=== PATIENT | female | born 1970 | race Caucasian/White ===

== ENCOUNTER → 2018-06-10 | Outpatient (CLI) | payer OTHER ==
[2018-06-10 11:26] LABS: Anisocytosis Moderate; Basophils # (A) 0.1 k/uL (0-0.2); Basophils % (A) 1 %; Eosinophils # (A) 0.1 k/uL (0-0.7); Eosinophils % (A) 2 %; HCT 31.9 % (34.0-46.0); HGB 9.4 gm/dL (11.4-16.0); Hypochromasia Marked; Lymphocytes # (A) 1.2 k/uL (1.0-4.8); Lymphocytes % (A) 21 %; MCH 23.4 pg (25.0-35.0); MCHC 29.6 g/dL (31.0-37.0); MCV 79.2 fL (80.0-100.0); Mean Platelet Volume 6.7; Microcytosis Slight; Monocytes # (A) 0.4 k/uL (0-1.0); Monocytes % (A) 8 %; Neutrophils # (A) 3.7 k/uL (1.3-7.7); Neutrophils % (A) 67 %; Platelet Count 292 k/uL (150-450); Poikilocytosis Moderate; RBC 4.03 m/uL (3.80-5.40); WBC 5.6 k/uL (3.8-10.6)
== END | disposition home or self-care (01) ==
LOC: LABPAT 10:22
PROVIDERS: ATTEND Obstetrics & Gynecology Obstetrics
DX: Z01.812 Encounter for preprocedural laboratory examination (principal); D64.9 Anemia, unspecified; N92.0 Excessive and frequent menstruation with regular cycle
CPT/HCPCS: 36415; 85025

== ENCOUNTER 2018-06-16 06:14 | Day surgery (SDC) | payer OTHER ==
[2018-06-09 12:05] VITALS: BMI 31.3
--- NOTE | 2018-06-15 13:57 | HP ---
HISTORY AND PHYSICAL HISTORY OF PRESENT ILLNESS: This is a very pleasant 48-year-old female, 3, para 3, presents with complaints of irregular heavy menses. She states her menstrual cycles are irregular in nature with a heavy flow with clots. She wishes endometrial ablation at this time. PAST MEDICAL HISTORY: Asthma, heart murmur, thyroid disease. PAST SURGICAL HISTORY: Laparoscopy that was done in 1990. MEDICATIONS: 1. Levothyroxine 50 mcg. 2. Wellbutrin 300 mg. 3. Xanax 0.5 as needed. 4. Zoloft 50 mg once daily. ALLERGIES: LATEX, SULFA. FAMILY MEDICAL HISTORY: Noncontributory to this procedure. REPRODUCTIVE HISTORY: She is 3, para 3 with 3 prior vaginal deliveries. Of note, she did have preeclampsia with 2 of her last 2 deliveries. TELEMETRY TECHNICIAN HISTORY: She states her menstrual cycles are irregular and heavy in nature and she is using a vasectomy for sterilization. SOCIAL HISTORY: She is a nonsmoker with very rare alcohol use. REVIEW OF SYSTEMS: She notes a regular menses with heavy flow. She denies urinary symptoms such as dysuria or urgency. PHYSICAL EXAM: GENERAL: She is a well-nourished, well-developed, alert female in no acute distress. HEART: Regular rate and rhythm. LUNGS: Clear to auscultation bilaterally. TELEMETRY TECHNICIAN EXAM: Her uterus is normal size and mobile with no adnexal masses being palpated. ASSESSMENT: 1. Menorrhagia for which patient desires endometrial ablation after counseling is completed. 2. Anemia. PLAN: NovaSure endometrial ablation with hysteroscopy, dilation and curettage discussed. The procedure is reviewed. All questions are answered and patient states understanding. Informed consent is obtained. We will proceed with procedure as stated above. MMODL / IJN: [id number] /
[~2018-06-16 06:14] MED LIST: DEXAMETHASONE SOD PHOSPHATE 10 MG/ML 1 ML VIAL IV ONE; LACTATED RINGERS 1,000 ML IV SCH; LIDOCAINE 1% 20 ML VIAL (10MG/ML) FOR IV START INTRADERMA PRN; MIDAZOLAM 2 MG/2 ML VIAL IV PRN; Pre Op ABX Message 1 EACH MISC MISCELLANE ONE; fentaNYL (PF) 50 MCG/ML 2 ML AMP IV PRN
[2018-06-16] MEDS: ONDANSETRON 4 MG/2 ML VIAL IVP ONE ×2 (06:50→09:59)
[2018-06-16] MEDS ORDERED: SCOPOLAMINE 1.5MG/72HR PATCH TRANSDERM ONE (06:51)
[2018-06-16] MEDS ORDERED: MIDAZOLAM 2 MG/2 ML VIAL ONE (07:33)
[2018-06-16] MEDS ORDERED: PROPOFOL 10 MG/ML 20 ML VIAL IV ONE (07:33)
[2018-06-16] MEDS ORDERED: LIDOCAINE 1% INJ 10MG/ML (20 ML MDV) ONE (07:33)
[2018-06-16] MEDS ORDERED: KETOROLAC 30 MG/ML 1 ML VIAL ONE (07:33)
[2018-06-16] MEDS ORDERED: fentaNYL (PF) 50 MCG/ML 2 ML AMP ONE (07:33)
--- NOTE | 2018-06-16 08:06 | P.OP ---
Date of Procedure: 06/16/18 Preoperative Diagnosis: Menorrhagia, anemia Postoperative Diagnosis: Same Procedure(s) Performed: Hysteroscopy, dilation and curettage, endometrial ablation with NovaSure Anesthesia: MAC Surgeon: Roseanna Mcbride Estimated Blood Loss (ml): 5 IV fluids (ml): 400 Urine output (ml): 50 Pathology: other (Endometrial curettings) Condition: stable Disposition: PACU Indications for Procedure: Heavy menstrual cycles with documented anemia Operative Findings: Normal-appearing endometrial cavity Description of Procedure: Patient is seen in the preoperative area and informed consent is obtained. Risks are reviewed once again the patient states understanding. Patient was then taken back to the operating suite where general anesthesia was obtained without difficulty by the anesthesia department. She was then prepped and draped in the normal sterile fashion in the dorsal lithotomy position. A latex free catheter was then used to drain her bladder of clear yellow urine. A weighted speculum was then placed in the posterior vaginal vault, and the anterior lip of the cervix was visualized and grasped with a single-tooth tenaculum. The endocervical canal was then dilated to 18-Yoruba, a hysteroscope was placed through the cervix and toward the endometrial cavity and the above noted findings were visualized. At this point the uterus was sounded to a total length of 8 with a cervical length of 4. A sharp curettage was performed until gritty texture was noted in all 4 quadrants of the endometrial cavity. The NovaSure device was opened and set to the appropriate measurements. After the cavity assessment was passed the cycle was allowed to complete at a power of 66 for a total of 70 seconds. Afterwards the NovaSure was removed without difficulty the single-tooth tenaculum was taken off of the anterior lip of the cervix and hemostasis was appreciated. ALL COUNTS ARE correct 2 patient tolerated procedure well and was taken the recovery room awake and in stable condition.
[2018-06-16 08:27] VITALS: RESP 18
[2018-06-16] MEDS ORDERED: LACTATED RINGERS 1,000 ML IV ONE (08:31)
[2018-06-16 08:41] VITALS: TEMP 97.9
[2018-06-16] MEDS ORDERED: HYDROcodone/APAP 5-325MG 1 EACH TAB PO ONE (08:52)
[2018-06-16 10:02] VITALS: BP 112/71; PULSE 67
== END 2018-06-16 10:16 | disposition home or self-care (01) ==
LOC: OR 06:14
PROVIDERS: ATTEND Obstetrics & Gynecology Obstetrics
DX: N92.0 Excessive and frequent menstruation with regular cycle (principal); J45.909 Unspecified asthma, uncomplicated; R01.1 Cardiac murmur, unspecified; E07.9 Disorder of thyroid, unspecified; Z79.890 Hormone replacement therapy; Z79.899 Other long term (current) drug therapy; Z88.2 Allergy status to sulfonamides; Z91.040 Latex allergy status
CPT/HCPCS: 58563; 81025; 88305; J2250; J1100; J2405; J2001; J3010; J1885; J2704